=== PATIENT | female | born 1985 | race Caucasian/White ===

== ENCOUNTER 2018-04-22 09:29 | Outpatient (CLI) | payer OTHER ==
[~2018-04-22] VITALS: Ht 160 cm; Wt 64.1 kg
[2018-04-22 10:00] VITALS: BP 109/56
[2018-04-22] MEDS ORDERED: PREN1TAB10 PO (10:20)
== END 2018-04-22 10:35 | disposition home or self-care (01) ==
LOC: LDOP 09:29
PROVIDERS: ATTEND Obstetrics & Gynecology
DX: O26.892 Other specified pregnancy related conditions, second trimester (principal); R25.2 Cramp and spasm; Z3A.27 27 weeks gestation of pregnancy
CPT/HCPCS: 59025; 99201; G0463

== ENCOUNTER 2018-07-12 13:15 | Inpatient (IN) | payer OTHER ==
[~2018-07-12] VITALS: Ht 160 cm; Wt 69.0 kg
[~2018-07-12 13:15] MED LIST: PREN1TAB10 PO
[2018-07-12] MEDS ORDERED: OXYTOCIN 30U/ 0.9% NaCL 500ML 500 ML IV ONE (21:57)
[2018-07-12] MEDS ORDERED: AMPICILLIN 2 GM in SODIUM CHLORIDE 0.9% 100 ML IVPB STA (21:57)
[2018-07-12] MEDS ORDERED: OXYTOCIN 30U/ 0.9% NaCL 500ML 500 ML IV PRN (21:57)
[2018-07-12] MEDS ORDERED: NEWBORN KIT ONE (21:59)
[2018-07-12] MEDS ORDERED: FENTANYL PF 100 MCG/2ML IVPush PRN (22:00)
[2018-07-12] MEDS ORDERED: SODIUM CITRATE/CITRIC ACID 30 ML UDC PO PRN (22:00)
[2018-07-12] MEDS ORDERED: MISOPROSTOL 25 MCG TABLET VG PRN (22:00)
[2018-07-12] MEDS ORDERED: CALCIUM CARBONATE 500 MG TAB.CHEW PO PRN (22:00)
[2018-07-12] MEDS ORDERED: METOCLOPRAMIDE 5 MG/ML, 2ML IVPush PRN (22:00)
[2018-07-12] MEDS ORDERED: TERBUTALINE 1 MG/ML, 1ML IVPush PRN (22:00)
[2018-07-12] MEDS ORDERED: FENTANYL PF 100 MCG/2ML IV PRN (22:00)
[2018-07-12 22:27] LABS: BASOPHILS # (AUTO) 0.03 x10^3/uL (0-0.1); BASOPHILS % (AUTO) 1 % (0-1); EOSINOPHILS # (AUTO) 0.11 x10^3/uL (0-0.4); EOSINOPHILS % (AUTO) 2 % (1-7); LYMPHOCYTES # (AUTO) 1.78 x10^3/uL (1-3.4); LYMPHOCYTES % (AUTO) 25 % (22-44); MD NO; MEAN CORPUSCULAR HEMOGLOBIN 33.3 pg (27.0-34.8); MEAN CORPUSCULAR HGB CONC 34.8 g/dL (32.4-35.8); MEAN CORPUSCULAR VOLUME 95.7 fL (80-100); MEAN PLATELET VOLUME 9.4 fL (7.4-10.4); MONOCYTES # (AUTO) 0.65 x10^3/uL (0.2-0.8); MONOCYTES % (AUTO) 9 % (2-9); NEUTROPHILS # (AUTO) 4.43 x10^3/uL (1.8-6.8); NEUTROPHILS % (AUTO) 63 % (42-75); PLATELET COUNT 139 x10^3/uL (130-400); RED BLOOD COUNT 3.81 x10^6/uL (3.82-5.3); RED CELL DISTRIBUTION WIDTH 13.9 % (9.6-15.2)
[2018-07-12] MEDS: PLEASE ENTER HEIGHT AND WEIGHT MC SCH (22:30)
[2018-07-12] MEDS: PLEASE ENTER ALLERGIES MC SCH (22:30)
[2018-07-12] MEDS ORDERED: MISOPROSTOL 25 MCG TABLET ONE (22:31)
[2018-07-12] MEDS ORDERED: D5%-LACTATED RINGERS 1,000 ML IV SCH (22:44)
[2018-07-12] MEDS ORDERED: LACTATED RINGERS 1,000 ML IV SCH (22:44)
[2018-07-13] MEDS ORDERED: AMPICILLIN 1 GM in SODIUM CHLORIDE 0.9% 100 ML IVPB SCH (02:30)
[2018-07-13] MEDS: PLEASE ENTER ALLERGIES MC SCH ×2 (06:30→14:30)
[2018-07-13] MEDS: PLEASE ENTER HEIGHT AND WEIGHT MC SCH ×2 (06:30→14:30)
[2018-07-13] MEDS ORDERED: LACTATED RINGERS 1,000 ML IV SCH (06:33)
[2018-07-13] MEDS ORDERED: FENTANYL/BUPIV./NS/PF 250 ML EPIDCONT SCH (06:33)
[2018-07-13] MEDS ORDERED: LACTATED RINGERS 1,000 ML IVBOLUS PRN (07:00)
[2018-07-13] MEDS ORDERED: FENTANYL PF 100 MCG/2ML ONE ×2 (07:02→07:33)
[2018-07-13] MEDS ORDERED: BUPIVACAINE 0.25% ONE ×2 (07:03→07:33)
[2018-07-13] MEDS ORDERED: LIDOCAINE/PF 1.5%-EPI 1:200K, 30ML ONE (07:33)
[2018-07-13] MEDS ORDERED: OXYTOCIN 30U/ 0.9% NaCL 500ML 500 ML ONE (07:55)
[2018-07-13] MEDS: OXYTOCIN 30U/ 0.9% NaCL 500ML 500 ML IV SCH ×2 (12:19→22:19)
[2018-07-13] MEDS ORDERED: OXYcodone/APAP 5/325MG TABLET PO PRN ×2 (12:30)
[2018-07-13] MEDS ORDERED: MISOPROSTOL 200 MCG TABLET PR PRN (12:30)
[2018-07-13] MEDS ORDERED: ONDANSETRON 2MG/ML, 2ML IV PRN (12:30)
[2018-07-13] MEDS ORDERED: ACETAMINOPHEN 325 MG TABLET PO PRN (12:30)
[2018-07-13] MEDS ORDERED: METHYLERGONOVINE 0.2 MG/ML IM PRN (12:30)
[2018-07-13 14:00] VITALS: BP 116/73
[2018-07-13 16:57] VITALS: BP 112/72
[2018-07-13] MEDS: IBUPROFEN 600 MG TABLET PO PRN (18:31)
[2018-07-13 19:53] LABS: BASOPHILS # (AUTO) 0.03 x10^3/uL (0-0.1); BASOPHILS % (AUTO) 0 % (0-1); EOSINOPHILS # (AUTO) 0.04 x10^3/uL (0-0.4); EOSINOPHILS % (AUTO) 0 % (1-7); LYMPHOCYTES # (AUTO) 1.57 x10^3/uL (1-3.4); LYMPHOCYTES % (AUTO) 15 % (22-44); MD NO; MEAN CORPUSCULAR HGB CONC 34.1 g/dL (32.4-35.8); MEAN CORPUSCULAR VOLUME 96.7 fL (80-100); MEAN PLATELET VOLUME 9.1 fL (7.4-10.4); MONOCYTES # (AUTO) 0.72 x10^3/uL (0.2-0.8); MONOCYTES % (AUTO) 7 % (2-9); NEUTROPHILS % (AUTO) 78 % (42-75); PLATELET COUNT 120 x10^3/uL (130-400); RED CELL DISTRIBUTION WIDTH 13.9 % (9.6-15.2)
[2018-07-13 20:00] VITALS: BP 115/76
[2018-07-14 00:55] VITALS: BP 113/73
[2018-07-14] MEDS: IBUPROFEN 600 MG TABLET PO PRN ×4 (00:55→19:16)
[2018-07-14 03:40] VITALS: BP 109/72
[2018-07-14] MEDS: DOCUSATE 100 MG CAPSULE PO PRN ×2 (06:50→20:36)
[2018-07-14 08:00] VITALS: BP 112/68
[2018-07-14] MEDS ORDERED: IBUP-1222 PO (08:00)
[2018-07-14] MEDS: OXYTOCIN 30U/ 0.9% NaCL 500ML 500 ML IV SCH ×2 (08:19→18:19)
[2018-07-14] MEDS: PRENATAL VIT/IRON/FA 1 EACH TABLET PO SCH (09:00)
[2018-07-14 19:00] VITALS: BP 118/74
[2018-07-15] MEDS: IBUPROFEN 600 MG TABLET PO PRN ×2 (01:37→08:24)
[2018-07-15] MEDS: OXYTOCIN 30U/ 0.9% NaCL 500ML 500 ML IV SCH (04:19)
[2018-07-15] MEDS: DOCUSATE 100 MG CAPSULE PO PRN (08:24)
[2018-07-15] MEDS: PRENATAL VIT/IRON/FA 1 EACH TABLET PO SCH (08:24)
[2018-07-15 08:35] VITALS: BP 118/79
== END 2018-07-15 11:20 | disposition home or self-care (01) | DRG 775 ==
LOC: LDIP 21:56 → 2NW 07-13 13:55
PROVIDERS: ADMIT Obstetrics & Gynecology; ATTEND Obstetrics & Gynecology
PROC: 10E0XZZ Delivery of Products of Conception, External Approach (ICD-10-PCS; principal; 2018-07-13)
PROC: 0KQM0ZZ Repair Perineum Muscle, Open Approach (ICD-10-PCS; 2018-07-13)
PROC: 3E033VJ Introduction of Other Hormone into Peripheral Vein, Percutaneous Approach (ICD-10-PCS; 2018-07-13)
PROC: 3E0R3BZ Introduction of Anesthetic Agent into Spinal Canal, Percutaneous Approach (ICD-10-PCS; 2018-07-13)
PROC: 00HU33Z Insertion of Infusion Device into Spinal Canal, Percutaneous Approach (ICD-10-PCS; 2018-07-13)
DX: O99.824 Streptococcus B carrier state complicating childbirth (principal); Z3A.39 39 weeks gestation of pregnancy; Z37.0 Single live birth; O69.81X0 Labor and delivery complicated by cord around neck, without compression, not applicable or unspecified; O70.1 Second degree perineal laceration during delivery
CPT/HCPCS: 36415; 85025; 86850; 86900; G0378; J0290; J3010; J3490

== ENCOUNTER 2021-02-13 05:12 | Inpatient (IN) | payer OTHER ==
[~2021-02-13] VITALS: Ht 160 cm; Wt 70.5 kg
[~2021-02-13 05:12] MED LIST changes: +IBUP-1222 PO
[2021-02-13] MEDS ORDERED: NEWBORN KIT ONE ×2 (05:16→05:28)
[2021-02-13] MEDS ORDERED: OXYTOCIN 30U/ 0.9% NaCL 500ML 500 ML ONE (05:17)
[2021-02-13] MEDS ORDERED: TERBUTALINE 1 MG/ML, 1ML SQ PRN (06:00)
[2021-02-13] MEDS ORDERED: OXYTOCIN 30U/ 0.9% NaCL 500ML 500 ML IV ONE (06:00)
[2021-02-13] MEDS ORDERED: ONDANSETRON 2MG/ML, 2ML IVPush PRN (06:00)
[2021-02-13] MEDS ORDERED: LACTATED RINGERS 1,000 ML IV SCH ×2 (06:00→10:00)
[2021-02-13] MEDS ORDERED: FENTANYL PF 100 MCG/2ML IVPush PRN (06:00)
[2021-02-13] MEDS ORDERED: CALCIUM CARBONATE 500 MG TAB.CHEW PO PRN (06:00)
[2021-02-13] MEDS ORDERED: TERBUTALINE 1 MG/ML, 1ML IVPush PRN (06:00)
[2021-02-13] MEDS ORDERED: FENTANYL PF 100 MCG/2ML IV PRN (06:00)
[2021-02-13] MEDS ORDERED: D5%-LACTATED RINGERS 1,000 ML IV SCH (06:00)
[2021-02-13] MEDS ORDERED: MISOPROSTOL 25 MCG TABLET VG PRN (06:00)
[2021-02-13] MEDS ORDERED: OXYTOCIN 30U/ 0.9% NaCL 500ML 500 ML IV PRN (06:00)
[2021-02-13 06:16] LABS: BASOPHILS % (AUTO) 1 % (0-1); EOSINOPHILS % (AUTO) 2 % (1-7); LYMPHOCYTES % (AUTO) 28 % (22-44); MEAN CORPUSCULAR HEMOGLOBIN 32.6 pg (27.0-34.8); MEAN CORPUSCULAR HGB CONC 34.5 g/dL (32.4-35.8); MEAN PLATELET VOLUME 8.1 fL (7.4-10.4); MONOCYTES % (AUTO) 9 % (2-9); NEUTROPHILS % (AUTO) 61 % (42-75); PLATELET COUNT 153 x10^3/uL (130-400); RED BLOOD COUNT 3.76 x10^6/uL (3.82-5.3); RED CELL DISTRIBUTION WIDTH 13.7 % (9.6-15.2)
[2021-02-13 06:24] LABS: MD NO
[2021-02-13] MEDS ORDERED: FENTANYL/BUPIV./NS/PF 250 ML EPIDCONT SCH (10:00)
[2021-02-13] MEDS ORDERED: NALOXONE 0.4 MG/ML, 1ML IVPush PRN (10:00)
[2021-02-13] MEDS ORDERED: EPHEDRINE 50 MG/ML, 1ML IVPush PRN (10:00)
[2021-02-13] MEDS ORDERED: LACTATED RINGERS 1,000 ML IVBOLUS PRN (10:00)
[2021-02-13] MEDS ORDERED: BUPIVACAINE 0.25% ONE (10:18)
[2021-02-13] MEDS ORDERED: ACETAMINOPHEN 325 MG TABLET PO PRN ×2 (23:00)
[2021-02-13] MEDS: OXYTOCIN 30U/ 0.9% NaCL 500ML 500 ML IV SCH (23:00)
[2021-02-13] MEDS ORDERED: SIMETHICONE 80 MG CHEW TAB PO PRN (23:00)
[2021-02-13] MEDS ORDERED: ONDANSETRON 2MG/ML, 2ML IV PRN (23:00)
[2021-02-13] MEDS ORDERED: OXYcodone/APAP 5/325MG TABLET PO PRN (23:00)
[2021-02-13] MEDS ORDERED: DOCUSATE 100 MG CAPSULE PO PRN (23:00)
[2021-02-13] MEDS ORDERED: MISOPROSTOL 200 MCG TABLET PR PRN (23:00)
[2021-02-13] MEDS ORDERED: METHYLERGONOVINE 0.2 MG/ML IM PRN (23:00)
[2021-02-14 00:40] VITALS: BP 112/71
[2021-02-14 04:30] VITALS: BP 103/64
[2021-02-14] MEDS: IBUPROFEN 600 MG TABLET PO PRN ×3 (04:33→16:57)
[2021-02-14 05:57] LABS: BASOPHILS % (AUTO) 0 % (0-1); EOSINOPHILS % (AUTO) 0 % (1-7); LYMPHOCYTES % (AUTO) 11 % (22-44); MEAN CORPUSCULAR HGB CONC 34.2 g/dL (32.4-35.8); MEAN PLATELET VOLUME 8.6 fL (7.4-10.4); MONOCYTES % (AUTO) 6 % (2-9); NEUTROPHILS % (AUTO) 83 % (42-75); PLATELET COUNT 131 x10^3/uL (130-400); RED BLOOD COUNT 3.62 x10^6/uL (3.82-5.3); RED CELL DISTRIBUTION WIDTH 13.3 % (9.6-15.2)
[2021-02-14 06:01] LABS: MD NO
[2021-02-14 07:30] VITALS: BP 107/69
[2021-02-14] MEDS ORDERED: PRENATAL VIT/IRON/FA 1 EACH TABLET PO SCH (09:00)
[2021-02-14] MEDS: OXYTOCIN 30U/ 0.9% NaCL 500ML 500 ML IV SCH (09:00)
[2021-02-14] MEDS: OXYcodone/APAP 5/325MG TABLET PO PRN ×2 (12:42→13:07)
[2021-02-14 12:50] VITALS: BP 116/72
[2021-02-14 16:59] VITALS: BP 110/72
[2021-02-14] MEDS ORDERED: IBUP-1222 PO (17:39)
[2021-02-14 19:55] VITALS: BP 111/67
== END 2021-02-14 22:46 | disposition home or self-care (01) | DRG 806 ==
LOC: LDIP 05:12 → 2NW 02-14 00:16
PROVIDERS: ADMIT Obstetrics & Gynecology; ATTEND Obstetrics & Gynecology
PROC: 10E0XZZ Delivery of Products of Conception, External Approach (ICD-10-PCS; principal; 2021-02-13)
PROC: 10D17Z9 Manual Extraction of Products of Conception, Retained, Via Natural or Artificial Opening (ICD-10-PCS; 2021-02-13)
PROC: 0KQM0ZZ Repair Perineum Muscle, Open Approach (ICD-10-PCS; 2021-02-13)
PROC: 3E0R3BZ Introduction of Anesthetic Agent into Spinal Canal, Percutaneous Approach (ICD-10-PCS; 2021-02-13)
PROC: 00HU33Z Insertion of Infusion Device into Spinal Canal, Percutaneous Approach (ICD-10-PCS; 2021-02-13)
DX: O69.1XX0 Labor and delivery complicated by cord around neck, with compression, not applicable or unspecified (principal); O99.354 Diseases of the nervous system complicating childbirth; Z37.0 Single live birth; G43.909 Migraine, unspecified, not intractable, without status migrainosus; O70.1 Second degree perineal laceration during delivery; Z3A.39 39 weeks gestation of pregnancy
CPT/HCPCS: 36415; 85025; 86592; 86850; 86900; G0378; J3010; J2590; J7120; U0003